=== PATIENT | female | born 1985 | race Caucasian/White ===

== ENCOUNTER 2021-05-30 14:43 | Outpatient (CLI) | payer BC | END 2021-05-30 14:44 | disposition home or self-care (01) | LOC: CSHULT 14:43 | PROVIDERS: ATTEND Nurse Practitioner | DX: R01.1 Cardiac murmur, unspecified (principal) | CPT/HCPCS: 93306 ==

== ENCOUNTER 2021-12-01 09:24 | Emergency (ER) | payer BC ==
[2021-12-01] MEDS ORDERED: Iopamidol 370 76% 100 ML VIAL ONE (09:27)
[2021-12-01] MEDS ORDERED: Morphine 4 MG/ML VIAL ONE (10:12)
[2021-12-01] MEDS ORDERED: Ondansetron PF 4 MG/2 ML Vial ONE (10:13)
[2021-12-01 10:40] LABS: #Basophils 0.1 10x3/uL (0.0-0.2); #Eosinphils 0.2 10x3/uL (0.0-0.5); #Monocytes 0.7 10x3/uL (0.0-1.1); #Neutrophils 7.4 10x3/uL (1.5-8.4); %Basophils 0.6 % (0.0-2.0); %Eosinophils 2.4 % (0.0-6.0); %Lymphocytes 15.8 % (18.0-47.0); %Monocytes 6.9 % (0.0-10.0); Hemoglobin 11.9 g/dL (12.0-15.5); Mean Corpuscular HGB CONC 32.6 g/dL (32.0-36.0); Mean Corpuscular Hemoglobin 29.7 pg (27.0-33.0); Mean Platelet Volume 12.4 fl (7.4-10.4); Platelet Count 162 10x3/uL (150-450); RBC Distribution Width 12.3 % (11.5-14.5); Red Blood Cell (RBC) Count 4.01 10x6/uL (3.90-5.03); White Blood Cell (WBC) Count 9.9 10x3/uL (3.5-10.5)
[2021-12-01 10:50] LABS: ALT (SGPT) 8 U/L (8-55); AST (SGOT) 13 U/L (5-34); Albumin 4.2 g/dL (3.5-5.0); Alkaline Phosphatase 50 U/L (40-110); Anion Gap 15 mmol/L (10-20); BUN (Urea Nitrogen) 14 mg/dL (7.0-18.7); Bilirubin, Total 0.7 mg/dL (0.2-1.2); Calc. Creatinine Clearance 0 mL/min (70-130); Calcium 9.2 mg/dL (7.8-10.44); Carbon Dioxide 26 mmol/L (22-29); Chloride 104 mmol/L (98-107); Globulin 2.5 g/dL (2.4-3.5); Glucose 88 mg/dL (70-105); Lipase 8 U/L (8-78); Potassium 4.3 mmol/L (3.5-5.1); Protein, Total 6.7 g/dL (6.0-8.3); Sodium 141 mmol/L (136-145)
== END 2021-12-01 11:26 | disposition home or self-care (01) ==
LOC: CSHERS 09:24
DX: M54.6 Pain in thoracic spine (principal); R07.9 Chest pain, unspecified
CPT/HCPCS: 71275; 80053; 83690; 83880; 84484; 85025; 93005; 96374; 96375; J2270; J2405; Q9967